=== PATIENT | male | born 1960 | race Caucasian/White ===

== ENCOUNTER 2018-04-20 15:16 | Inpatient (IN) | payer OTHER ==
[~2018-04-20] VITALS: Ht 210.8 cm; Wt 185.5 kg
[~2018-04-20 15:16] MED LIST: ALEVE220 MG PO; BAYER CHEWABLE81 MG PO; CLARITIN-D 12 H1 TA1 PO; FISH OIL 1,001000 M2 PO; IBUPROFEN 600600 M1 PO; LIPITOR40 MG PO
[2018-04-20] MEDS ORDERED: ALLER-TEC D 5-1 EACH PO (16:05)
[2018-04-20] MEDS ORDERED: GLUMETZA1000 PO (16:06)
[2018-04-20] MEDS ORDERED: AMARYL2 MG PO (16:07)
[2018-04-20] MEDS ORDERED: HYZAAR 100-12.1 EACH PO (16:08)
[2018-04-20] MEDS ORDERED: TYLENOL325 MG PO (16:11)
[2018-04-20 16:15] VITALS: BP 165/110
[2018-04-20 16:18] LABS: HEMATOCRIT 47.7 % (42.0-52.0); HEMOGLOBIN 16.5 gm/dL (14.0-18.0); MCH 28.3 pg (26.0-34.0); MCHC 34.5 g/dL (28.0-37.0); MCV 81.9 fL (80.0-100.0); RBC 5.83 mil/uL (4.50-6.00); RDW 14.1 % (10.5-14.5); WBC 7.8 thou/uL (4.0-11.0)
[2018-04-20 16:31] LABS: ANION GAP 10 mmol/L (7-16); BUN 18 mg/dL (7-18); CALCIUM 9.7 mg/dL (8.5-10.1); CHLORIDE 104 mmol/L (98-107); CO2 27 mmol/L (21-32); CREATININE 1.1 mg/dL (0.7-1.3); GLUCOSE 119 mg/dL (74-106); SODIUM 141 mmol/L (136-145)
[2018-04-20 16:39] LABS: ALBUMIN 3.8 g/dL (3.4-5.0); SGOT 70 U/L (15-37); SGPT 97 U/L (30-65); TOTAL BILIRUBIN 0.6 mg/dL (<0.1-1.0); TOTAL PROTEIN 7.5 g/dL (6.4-8.2); TROPONIN-I <0.06 ng/mL (<0.06)
[2018-04-20 17:54] VITALS: BP 192/126
[2018-04-20 18:58] VITALS: BP 157/97
--- NOTE | 2018-04-20 19:20 | NUR ---
Patient arrived as direct admit from Dr. Blanton office for new onset Afib RVR. Orders taken from Dr. Blanton for diet, additional labs, restart home meds, consult to cardiology. Admission history, education and assessment completed. Medications reviewed and restarted. Oriented to room and call light, fall precautions. Agreeable to call if assistance is needed. Up ad gaurav with steady gait. Cardiology rounded on patient; patient is in Afib, rates sustaining between 120s-150s. Blood pressure also elevated. To give onetime dose of Toprol 50 mg PO, 5 mg Cardizem IV bolus and begin Cardizem drip, titrate as needed. Rates are beginning to decrease, now 110s-120s. Spouse at bedside. Multiple family members visiting throughout evening. Bilateral SCDs in place. Too early to determine progression towards POC. Will continue to monitor.
[2018-04-20 20:00] VITALS: BP 157/97
[2018-04-20 23:55] VITALS: BP 121/82
[2018-04-21 01:00] VITALS: BP 121/82
[2018-04-21 03:05] LABS: GLYCOHEMOGLOBIN (HGB A1C) 6.9 % (4.8-5.6)
--- NOTE | 2018-04-21 03:16 | NUR ---
ASSUMED PT CARE AROUND 1900. A&OX4. DENIES ANY PAIN. VSS. BP STABLE. SON STAYED THE NIGHT AT BEDSIDE. PT WORE HOME CPAP DURING THE NIGHT. CARDIZEM GTT INFUSING, TITRATED FROM 5ML/HR DOWN TO 2.5 ML/HR DUE TO HR <100 WHILE PT WAS SLEEPING. NO MAJOR COMPLAINTS THIS SHIFT. PT DENIED ANY DIZZINESS. PROGRESSING TOWARD POC GOALS. WILL CONTINUE TO MONITOR FURTHER.
[2018-04-21 04:20] VITALS: BP 154/99
[2018-04-21 06:50] LABS: CHOLESTEROL 168 mg/dL (<200); HDL CHOLESTEROL 26 mg/dL (>40); LDL CHOLESTEROL 106 mg/dL (<100); TC:HDL 6.5 Ratio (Not establshd); TRIGLYCERIDE 180 mg/dL (<150); VLDL 36 mg/dL (<40)
[2018-04-21 08:04] VITALS: BP 153/99
--- NOTE | 2018-04-21 08:25 | H ---
[facility] [address] HISTORY AND PHYSICAL Name: ARGENIS HART Room #: 357-P ADM IN M.R.#: [id number] Admission: 04/20/18 ������������������ Attend Phys: Osorio Blanton MD Discharge: ������������������ Date of : 62 Report #: [id number] THIS REPORT FOR: //name// CC: Geovanny Blanton DATE OF SERVICE: 04/20/2018 CHIEF COMPLAINT: Syncope. HISTORY OF PRESENT ILLNESS: The patient is a 58-year-old gentleman who was admitted from the office today with a syncopal episode. He was in his usual state of health earlier the afternoon when he began to feel dizzy, lightheaded and had a syncopal episode at a local business [place]. He said the next thing he remembers is lying on the floor and customer standing around him to help him up. He did not have any preceding symptoms other than a short episode of lightheadedness and a weak feeling and then, he found himself on the floor. He denied any chest pain, palpitations or headache. In the office, an EKG was performed revealing atrial fibrillation with a rate of 115. He is admitted for cardiac evaluation. PAST MEDICAL HISTORY: Dyslipidemia, obstructive sleep apnea on CPAP, lumbar radiculopathy, diabetes type 2, hypertension, thoracic aortic aneurysm. PAST SURGICAL HISTORY: None. FAMILY HISTORY: Noncontributory. SOCIAL HISTORY: No chronic alcohol or tobacco use. He is and lives at home. ALLERGIES: PENICILLIN. MEDICATIONS: Aspirin 81 mg, fish oil, Tylenol, Luz Maria-D, Lipitor 40 mg, Hyzaar 100/12.5 mg, Amaryl 1 mg, metformin 1000 mg twice a day. REVIEW OF SYSTEMS: Denies headache, chest pain, abdominal pain, nausea, vomiting, diarrhea, constipation, dysuria. PHYSICAL EXAMINATION: VITAL SIGNS: Blood pressure 148/79, temperature 98, pulse 115, O2 sat 95% on room air. GENERAL: He is awake and alert. HEAD AND NECK: Unremarkable. LUNGS: Clear. HEART: Tachycardic, irregular rhythm. [facility] [address] [place] [address] HISTORY AND PHYSICAL Name: TANNERARGENIS Alicia Room #: 357-P [facility] IN .R.#: [id number] Admission: 04/20/18 ������������������ Attend Phys: Osorio Blanton MD Discharge: ������������������ Date of : 62 Report #: [id number] LUNGS: Clear. ABDOMEN: Obese, soft, normoactive bowel sounds. EXTREMITIES: No edema. NEUROLOGIC: Intact. ASSESSMENT: 1. New onset atrial fibrillation. 2. Hypertension. 3. Diabetes type 2. 4. Obstructive sleep apnea, on CPAP. 5. History of thoracic aneurysm. PLAN: He is admitted to telemetry for cardiac evaluation and we will have Dr. Sears see him in consultation. ��������������������������������������������� <ELECTRONICALLY SIGNED> ���������������������������������������� By: Osorio Blanton MD ��������������������������������������������� 04/21/18 0825 1451 1520 Osorio Blanton MD /janel
[2018-04-21] MEDS ORDERED: ELIQUIS5 MG PO (08:26)
[2018-04-21] MEDS ORDERED: CARDIZEM CD240 MG PO (08:27)
[2018-04-21 10:23] VITALS: BP 153/99
--- NOTE | 2018-04-21 13:28 | NUR ---
Assumed care of patient at 0700. BP elevated. Remains in AFib, rates 80s-low 100s. Otherwise, VSS. Denies pain. Denies dizziness. Displays steady gait. Is ready to discharge home. Discharge orders received. 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 Able to provide patient with samples for Eliquis and also provided with savings card to help with copay cost. Discharge prescriptions, follow up appointments and instructions reviewed with patient and spouse at bedside. Verbalize understanding. IV and telemetry discontinued. Belongings gathered. Patient transported to private vehicle to discharge home.
--- NOTE | 2018-04-22 19:27 | EKG ---
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: Lizzeth WELSH : 1960 Requested By: Maddie Delgado Order Number: [id number] MD: Fabricio Mcdonald Measurements Intervals [place] Rate: 112 P: [place]: QRS: -1 QRSD: 89 T: 33 QT: 332 QTc: 453 Interpretive Statements Atrial fibrillation Early transition Nonspecific ST-T wave changes No previous ECG available for comparison Electronically Signed On 04-22-2018 19:27:10 FINISHING FRAME RUNNER by Fabricio Mcdonald [email or web address] ��������������������������������������������� <ELECTRONICALLY SIGNED> ���������������������������������������� By: Fabricio Mcdonald MD ��������������������������������������������� 04/22/18 192 18 18 Fabricio Mcdonald MD /EPI
--- NOTE | 2018-04-22 19:36 | EKG ---
[address] [place] [address] ELECTROCARDIOGRAM REPORT Name: ARGENIS HART Room #: 357-P DIS IN M.R.#: [id number] ������������������ Admission: 04/20/18 ������������������ Attend Phys: Osorio Blanton MD Discharge: 04/21/18 ������������������ Date of : 62 Report #: [id number] ����������������������������������������������������������������� [id number] THIS REPORT FOR: //name// 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: [place] : 1960 Requested By: Danny Sears Order Number: [id number] MD: Fabricio Mcdonald Measurements Intervals [place] Rate: 83 P: [place]: QRS: 3 QRSD: 95 T: 32 QT: 391 QTc: 460 Interpretive Statements Atrial fibrillation Early transition Baseline wander Nonspecific ST-T wave changes No previous ECG available for comparison Electronically Signed On 04-22-2018 19:36:13 AIRPLANE PILOT CHIEF by Fabricio Mcdonald [email or web address] ��������������������������������������������� <ELECTRONICALLY SIGNED> ���������������������������������������� By: Fabricio Mcdonald MD ��������������������������������������������� 04/22/18 1936 4 4 Fabricio Mcdonald MD /CHARI
--- NOTE | 2018-04-25 12:37 | D ---
[facility] [place] [address] DISCHARGE SUMMARY Name: ARGENIS HART Room #: 357-P [facility] IN M.R.#: [id number] Admission: 04/20/18 ������������������ Attend Phys: Osorio Blanton MD Discharge: 04/21/18 ������������������ Date of : 62 Report #: [id number] THIS REPORT FOR: //name// CC: Geovanny Blanton DATE OF SERVICE: 04/21/2018 FINAL DIAGNOSES: 1. New onset atrial fibrillation with rapid ventricular response. 2. Obstructive sleep apnea. 3. Hypertension. 4. Diabetes type 2. HOSPITAL COURSE: The patient was admitted from the office with new onset atrial fibrillation. Dr. Sears saw him in consultation. Brief doses of IV Cardizem were used and then oral Cardizem. His rate was then controlled in the 80s. Anticoagulation was initiated. The plan will be outpatient cardiac event monitor with office followup. PHYSICAL EXAMINATION: GENERAL: On the day of discharge, he was resting comfortably in bed. VITAL SIGNS: Stable, heart rate was in the 80s, AFib. LUNGS: Clear. HEART: Irregular. ABDOMEN: Soft, normoactive bowel sounds, obese. EXTREMITIES: No edema. DISPOSITION: He is discharged to home with diet and activity as tolerated including diabetic diet. I have resumed all usual home medications plus Cardizem-CD 240 mg a day and Eliquis 5 mg twice a day. Follow up with Dr. Sears this coming week and Dr. Dill. ��������������������������������������������� <ELECTRONICALLY SIGNED> ���������������������������������������� By: Osorio Blanton MD ��������������������������������������������� 04/25/18 1237 0830 1110 Osorio Blanton MD /nt
== END 2018-04-21 13:29 | disposition home or self-care (01) | DRG 309 ==
LOC: 3W 15:16
PROVIDERS: Nurse Practitioner; ADMIT Internal Medicine Geriatric Medicine
DX: I48.0 Paroxysmal atrial fibrillation (principal); Z68.41 Body mass index [BMI] 40.0-44.9, adult; G47.33 Obstructive sleep apnea (adult) (pediatric); I10 Essential (primary) hypertension; E11.9 Type 2 diabetes mellitus without complications; E78.5 Hyperlipidemia, unspecified; I71.2 Thoracic aortic aneurysm, without rupture; I25.10 Atherosclerotic heart disease of native coronary artery without angina pectoris; E66.9 Obesity, unspecified; Z79.82 Long term (current) use of aspirin; Z79.84 Long term (current) use of oral hypoglycemic drugs; Z79.899 Other long term (current) drug therapy; Z88.0 Allergy status to penicillin
CPT/HCPCS: 10779

== ENCOUNTER 2018-05-28 16:59 | Inpatient (IN) | payer OTHER ==
[~2018-05-28] VITALS: Ht 210.8 cm; Wt 187.2 kg
[~2018-05-28 16:59] MED LIST changes: +ALLER-TEC D 5-1 EACH PO; +AMARYL2 MG PO; +CARDIZEM CD240 MG PO; +ELIQUIS5 MG PO; +GLUMETZA1000 PO; +HYZAAR 100-12.1 EACH PO; +TYLENOL325 MG PO
[2018-05-28 17:50] VITALS: BP 141/88
[2018-05-28 19:15] VITALS: BP 142/79
--- NOTE | 2018-05-28 19:53 | NUR ---
PT DIRECT ADMIT FROM DR. MORAN OFFICE. PT A&OX4, UP AD DORIAN. PT VITALS WITHIN NORMAL LIMITS AND PT WAS AFIB CONTROLLED RATE IN 80'S. CALLED CONTRACTOR BROOMCORN THRESHING AND ASKED IF OKAY TO GIVE METFORMIN TONIGHT. DR. PERRY WAS CONTRACTOR BROOMCORN THRESHING AND SAID TO GIVE METFORMIN PT WILL NOT HAVE HEART CATH TOMORROW. ALSO ORDERED ACHS AND INSULIN LDSS. ADMISSION COMPLETED.
[2018-05-28] MEDS ORDERED: DILTIAZEM 24HR360 M1 PO (19:56)
[2018-05-29 00:45] VITALS: BP 143/95
[2018-05-29 03:35] LABS: CALCIUM 8.7 mg/dL (8.5-10.1); CREATININE 0.9 mg/dL (0.7-1.3); POTASSIUM 3.7 mmol/L (3.5-5.1)
[2018-05-29 03:38] LABS: INR 1.1; PROTIME 11.6 Seconds (9.3-11.4)
--- NOTE | 2018-05-29 03:39 | NUR ---
RECEIVED PT'S CARE AROUND 192; PT. ON BED; NO C/O; NO C/O DIZZINESS; DURING ASSESSMENT NO C/O CP OR DIZZINESS; AOX4; ABLE TO AMBULATE FROM BED TO RESTHROOM; EDUCATED ABOUT FALL PREVENTION ST. UNDERSTANDING; RELATIVES AT BED SIDE; PER DR. PERRY ORDER METFORMIN GIVEN; ABLE TO REST THROUGH THE NIGHT; HEART RHYTHM A-FIB; ASSESSMENT CHARGED; FOLLOWING POC; WILL PASS ON REPORT.
[2018-05-29 04:00] LABS: HEMATOCRIT 42.4 % (42.0-52.0); HEMOGLOBIN 14.6 gm/dL (14.0-18.0); MCH 28.5 pg (26.0-34.0); MCHC 34.5 g/dL (28.0-37.0); MCV 82.5 fL (80.0-100.0); RBC 5.14 mil/uL (4.50-6.00); WBC 6.7 thou/uL (4.0-11.0)
[2018-05-29 04:19] VITALS: BP 135/96
[2018-05-29 07:28] VITALS: BP 159/100
[2018-05-29 11:27] VITALS: BP 155/111
[2018-05-29 15:17] VITALS: BP 138/94
--- NOTE | 2018-05-29 15:27 | NUR ---
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 PCP Dr Alfonso Dill. His diagnosed with lymphoma and undergoing treatment at this time. She just began tx. Patient has 7 children, 2 living at home. is independent with adls and able to be at home she may not visit due to cancer diagnosis. Anticipate dc home no needs, casemgt following.
--- NOTE | 2018-05-29 16:58 | EKG ---
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: : 1960 Requested By: Abdulkadir Ramirez Order Number: [id number] MD: Danny Sears Measurements Intervals [place] Rate: 95 P: [place]: QRS: 8 QRSD: 105 T: 17 QT: 368 QTc: 463 Interpretive Statements Atrial fibrillation Ventricular premature complex Abnormal R-wave progression, early transition Compared to ECG 04/21/2018 08:05:39 Ventricular premature complex(es) now present Electronically Signed On 05-29-2018 16:58:05 CDT by Danny Sears [email or web address] ��������������������������������������������� <ELECTRONICALLY SIGNED> ���������������������������������������� By: Danny Sears MD, [facility] ��������������������������������������������� 05/29/18 1658 0736 0736 Danny Sears MD, [facility] /EPI
--- NOTE | 2018-05-29 18:19 | NUR ---
ASSESSMENT DOCUMENT. PT ALERT AND ORIENTED. DENIED HAVING PAIN OR DISCOMFORT. NO CARDIAC OR RESPIRATORY DISTRESS NOTED. NPO AFTER MIDNIGHT. NO CONCERNS AT THIS TIME. WILL CONTINUE TO MONITOR.
[2018-05-29 19:22] VITALS: BP 140/84
[2018-05-30] VITALS (13 sets, daily range): BP systolic 95–151; BP diastolic 59–101
--- NOTE | 2018-05-30 03:48 | NUR ---
ASSUMED PT CARE AT 1900. VSS. PT A&0X4. AFIB ON THE MONITOR, CONTROLLED. PT IS MEANT TO HAVE A HEART CATH PROCEDURE DONE THIS AM, NO ORDERS YET. PT RESTED ALL NIGHT, ASSESSMENTS ARE CHARTED, NO COMPLAINTS OF PAIN NAUSEA OR ANY DISTRESS. PT IS STABLE. WILL CONTINUE TO MONITOR PER POC
--- NOTE | 2018-05-30 08:23 | EKG ---
[address] [address] ELECTROCARDIOGRAM REPORT Name: ARGENIS HART Room #: 210-P ADM IN M.R.#: [id number] ������������������ Admission: 05/28/18 ������������������ Attend Phys: Abdulkadir Ramirez MD Discharge: ������������������ Date of : 62 Report #: [id number] ����������������������������������������������������������������� [id number] THIS REPORT FOR: //name// [facility] Test Date: 2018-05-30 Test Time: 07:05:08 Pat Name: ARGENIS HART Department: Room: 210 P Gender: M Sales Review Clerk: PATRICA : 1960 Requested By: Abdulkadir Ramirez Order Number: [id number] MD: Abdulkadir Ramirez Measurements Intervals [place] Rate: 79 P: [place]: QRS: -1 QRSD: 107 T: 36 QT: 396 QTc: 455 Interpretive Statements Atrial fibrillation Abnormal R-wave progression, early transition Minimal ST elevation, inferior leads Compared to ECG 05/29/2018 07:36:08 ST (T wave) deviation now present Ventricular premature complex(es) no longer present Electronically Signed On 05-30-2018 8:23:13 CDT by Abdulkadir Ramirez [email or web address] ��������������������������������������������� <ELECTRONICALLY SIGNED> ���������������������������������������� By: Abdulkadir Ramirez MD ��������������������������������������������� 05/30/18822 4 4 Abdulkadir Ramirez MD /EPI
--- NOTE | 2018-05-30 18:30 | NUR ---
ASSESSMENT DOCUMENTED. VSS. PT ALERT AND ORIENTED. DENIED HAVING PAIN OR DISCOMFORT. HAD CARDIAC CATH THIS AM. RIGHT GROIN INCISION C/D/I. NO HEMATOMA NOTED. SCHEDULED FOR ICD IN THE MID MORNING. NO CARDIAC OR RESPIRATORY DISTRESS NOTED. WILL CONTINUE TO MONITOR.
[2018-05-31] VITALS (11 sets, daily range): BP systolic 107–157; BP diastolic 74–95
--- NOTE | 2018-05-31 04:28 | NUR ---
ASSUMED PT CARE AT 1900. VSS. PT A&0X4. ASSESSMENTS AND MEDS GIVEN ARE CHARTED. PT TOOK A HIBECLENS SHOWER LAST NIGHT AND WILL TAKE ANOTHER AROUND 8AM THIS MORNING. HEART MONITOR ELECTRODES WERE TRANSFERED TO HIS BACK SINCE LAST NIGHT. CONSENT SIGNED. HAS BEEN NPO SINCE MIDNIGHT IN PREP FOR ICD PLACEMENT TODAY. PT RESTED WELL ALL NIGHT, NO COMPLAINTS OF PAIN OR DISTRESS. WILL CONTINUE TO MONITOR PER POC.
[2018-05-31 04:31] LABS: CALCIUM 8.7 mg/dL (8.5-10.1); POTASSIUM 3.8 mmol/L (3.5-5.1)
[2018-05-31 05:16] LABS: ABSOLUTE NEUTROPHILS 5.3 thou/uL (1.4-8.2); BASOPHILS 0.6 % (0.0-2.0); EOSINOPHILS 3.1 % (0.0-3.0); HEMATOCRIT 43.7 % (42.0-52.0); HEMOGLOBIN 15.1 gm/dL (14.0-18.0); MCH 28.2 pg (26.0-34.0); MCHC 34.6 g/dL (28.0-37.0); MCV 81.6 fL (80.0-100.0); MONOCYTES 7.1 % (1.0-8.0); PLATELET COUNT 257 thou/uL (150-400); POLYS 66.2 % (36.0-66.0); RBC 5.35 mil/uL (4.50-6.00)
--- NOTE | 2018-05-31 09:30 | EKG ---
[address] [address] ELECTROCARDIOGRAM REPORT Name: ARGENIS HART Room #: 210-P ADM IN M.R.#: [id number] ������������������ Admission: 05/28/18 ������������������ Attend Phys: Abdulkadir Ramirez MD Discharge: ������������������ Date of : 62 Report #: [id number] ����������������������������������������������������������������� [id number] THIS REPORT FOR: //name// [facility] Test Date: 2018-05-31 Test Time: 07:04:56 Pat Name: ARGENIS HART Department: Room: 210 P Gender: M Benefits Coordinator: PATRICA : 1960 Requested By: Abdulkadir Ramirez Order Number: [id number] MD: Danny Sears Measurements Intervals [place] Rate: 78 P: [place]: QRS: -6 QRSD: 110 T: 40 QT: 406 QTc: 463 Interpretive Statements Atrial fibrillation Abnormal R-wave progression, early transition Compared to ECG 05/30/2018 07:05:08 No significant change was found Electronically Signed On 05-31-2018 9:30:43 CDT by Danny Sears [email or web address] ��������������������������������������������� <ELECTRONICALLY SIGNED> ���������������������������������������� By: Danny Sears MD, [facility] ��������������������������������������������� 05/31/18 0930 0704 Danny Sears MD, [facility] /EPI
--- NOTE | 2018-05-31 10:21 | 2DMMODE ---
[facility] [place] [place] [address] 2 D/M-MODE ECHOCARDIOGRAM Name: TANNERARGENIS Alicia Room #: 210-P ADM IN M.R.#: [id number] ������������� Admission: 05/28/18 ������������� Attend Phys: Abdulkadir Ramirez Discharge: ��� ������������� ��� Date of : 62 Date of Service: 05/31/18 1021 �� Report #: [id number] �������� ��������������������������������������������[id number] THIS REPORT FOR: //name// APPROVED REPORT Study performed: 05/31/2018 09:21:50 EXAM: Limited 2D, Doppler, and color-flow Echocardiogram Patient Location: Echo lab Room #: 210 Status: routine BSA: 3.21 HR: 103 bpm BP: 132/80 mmHg Rhythm: Atrial Fibrillation Other Information Study Quality: Fair Technically limited study due to body habitus. Indications Ventricular tachycardia. Hx: Afib, CAD, DM, HLP. Echo Enhancing Agent Indication: Endocardial border delineation Agent(s) / Amount(s) Used: Optison 5 cc 2D Dimensions IVSd: 13.64 (7-11mm) LVDd: 52.18 mm PWd: 12.90 (7-11mm) Ascending Ao: 43.90 (22-36mm) LVDs: 39.03 (25-40mm) Aortic Root: 44.83 mm Volumes Left Atrial Volume (Systole) Single Plane 4CH: 54.28 mL Single Plane 2CH: 61.79 mL LA ESV Index: 20.00 mL/m2 Aortic Valve AoV Peak Matias.: 1.11 m/s AO Peak Gr.: 5.00 mmHg Left Ventricle The left ventricle is normal size. Mild concentric left ventricular [facility] [address] [place] [address] 2 D/M-MODE ECHOCARDIOGRAM Name: ARGENIS HART Room #: 210-P ADM IN .R.#: [id number] ������������� Admission: 05/28/18 ������������� Attend Phys: Abdulkadir Ramirez Discharge: ��� ������������� ��� Date of : 62 Date of Service: 05/31/18 1021 �� Report #: [id number] �������� ��������������������������������������������[id number] hypertrophy. Left ventricular systolic function is normal. LVEF is 50-55%. This study is not technically sufficient to allow evaluation of the LV diastolic function due to atrial fibrillation. Atria The left atrium size is normal. The right atrium size is normal. Aortic Valve Aortic valve is mildly calcified. Mild aortic regurgitation. There is no aortic valvular stenosis. Mitral Valve The mitral valve is normal in structure. Mild mitral regurgitation. Tricuspid Valve The tricuspid valve is normal in structure. There is no tricuspid valve regurgitation noted. Great Vessels Aortic root is dilated at 4.5cm. Ascending aorta is dilated (4.4cm). IVC is not well visualized. Pericardium There is no pericardial effusion. <Conclusion> Limited and abbreviated study Left ventricular systolic function is normal. LVEF is 50-55%. Aortic valve is mildly calcified. Mild aortic regurgitation, no stenosis. The mitral valve is normal in structure. Mild mitral regurgitation. Ascending aorta is dilated (4.4cm). There is no pericardial effusion. ��������������������������������������������� <ELECTRONICALLY SIGNED> ���������������������������������������� By: Danny Sears MD, [facility] ��������������������������������������������� 05/31/18 1021 1021 1021 Danny Sears MD, FACC /INF
--- NOTE | 2018-05-31 14:22 | NUR ---
Nutrition: pt admitted with afib, Vtach and seen due to BMI 42. No weight hx. Cardiac cath done yesterday negative. Pt having ICD placement today and not in room. NPO. Prior heart healthy diet. Will follow for adequate intake/education needs when pt available.
--- NOTE | 2018-05-31 17:46 | NUR ---
ASSESSMENT CHARTED. PT ALERT AND ORIENTED. HAD ICD PLACEMENT THIS AM. RIGHT CHEST INCISION. C/D/I WITH DERMABOND. NO HEMATOMA NOTED. CMS INTACT ON LEFT ARM. HAS IMMOBILIZER ON THE LEFT HAND. DENIED HAVING PAIN OR DISCOMFORT. WILL CONTINUE TO MONITOR.
[2018-06-01 04:00] VITALS: BP 119/81
[2018-06-01 08:05] VITALS: BP 108/54
[2018-06-01] MEDS ORDERED: METOPROLOL SUCC50 MG PO (08:07)
[2018-06-01] MEDS ORDERED: SOTALOL 120 MG120 MG PO (08:07)
[2018-06-01 09:47] VITALS: BP 108/54
--- NOTE | 2018-06-01 10:05 | CATHLAB ---
[place] [address] [facility] [place] [address] INVASIVE PROCEDURE REPORT Name: ARGENIS HART Room #: 210-P [facility] IN [facility]#: [id number] ������������� Admission: 05/28/18 ������������� Attend Phys: Abdulkadir Ramirez Discharge: ��� ������������� ��� Date of : 62 Date of Service: 06/01/18 1005 �� Report #: [id number] �������� ��������������������������������������������[id number] THIS REPORT FOR: //name// APPROVED REPORT Study performed: 05/30/2018 07:38:15 Patient Details Patient Status: In-Patient Room #: Indication Arrhythmia Procedure Narrative The patient was brought urgently to the Cardiac Catheterization Laboratory and was prepped and draped in a sterile manner. The Right Groin^ was infiltrated with 1% Lidocaine subcutaneous anesthesia. A PINNACLE 6FR Sheath #[id number] sheath was inserted into the RFA^. Coronary angiography was performed using coronary diagnostic catheters. The left coronary system was accessed and visualized with a JL5 catheter. The left ventricle was accessed and visualized with a PIGTAIL catheter. Left ventricular/Aortic Valve gradient assessed . Left ventriculogram was performed in LINDER projection. Closure device was deployed with a Fr MYNXGRIP 6/7F #[id number]. The patient tolerated the procedure well and there were no complications associated with the procedure. There was no hematoma. Intraoperative Conscious Sedation Sedation start time: 0740 Case end Time: 0850 Fentanyl 100 mcg Versed 2 mg Fluoro Time: 25.10 minutes Dose: DAP 87201.00 cGycm2 Contrast Type and Amount: Omnipaque 380 ml Coronary Angiography The patient's coronary anatomy is left dominant. Diagnostic Cath Left Main Large, normal left main LAD The LAD was a large vessel that extended to the inferoapex. The LAD was angiographically normal. Diagonal 1 Large first diagonal/ramus branch with mild ostial and proximal plaquing [facility] [address] [employer] [address] INVASIVE PROCEDURE REPORT Name: ARGENIS HART Room #: 210-P [facility] IN M.R.#: [id number] ������������� Admission: 05/28/18 ������������� Attend Phys: Abdulkadir Ramirez Discharge: ��� ������������� ��� Date of : 62 Date of Service: 06/01/18 1005 �� Report #: [id number] �������� ��������������������������������������������[id number] Diagonal 2 Small second diagonal branch, angiographically normal Circumflex Circumflex was large and dominant. Mild proximal plaquing. OM1 Mid vessel arising bifurcating first marginal branch, angiographically normal L PDA Distal circumflex gave rise to the posterior descending, angiographically normal Right Coronary See below Left Ventriculography The left ventricle is normal in size with normal contractility. The left ventricular ejection fraction is estimated to be 60-65%. Left ventricular wall motion abnormalities are not present. There is no mitral insufficiency. The left diagnostic catheter was barely long enough to reach to LM ostium. Multiple catheters were used to try to engage the right coronary including JR 4,5, and 6, AR mod, AR2, and no torque right. On each occasion the catheters were not long enough, hubbed at the groin; the right coronary artery probably had an anomolous or anterior origin. Supravalvular aortography demonstrated no dissection. Mild dilatation of the ascending aorta. Probable small, nondominant right coronary. Conclusion Technically difficult study 1. Normal global and regional left ventricular systolic function. 2. Normal left main 3. Mild, scattered nonocclusive plaquing in the LAD and circumflex 4. The right coronary was probably nondominant and had an anomalous or anterior origin. Unable to selectively engage the right coronary in part due to catheter sizes that were too short for his 6 foot 11 inch frame ��������������������������������������������� <ELECTRONICALLY SIGNED> ���������������������������������������� By: Danny Sears MD, [facility] ��������������������������������������������� 06/01/18 1005 1005 1005 Danny Sears MD, FACC /INF
[2018-06-01 11:50] VITALS: BP 103/46
--- NOTE | 2018-06-01 13:06 | NUR ---
ASSESSMENT DOCUMENTED. PT ALERT AND ORIENTED. DENIED HAVING PAIN OR DISCOMFORT. LEFT CHST ICD INSCISION C/D/I. NO HEMATOMA NOTED. DISCHARGE INSTRUCTIONS GIVEN TO PT. PT VERBERLIZE UNDERSTANDING. PT LEFT THE FACILITY ACCOMPANIED BY THE SON.
--- NOTE | 2018-06-02 18:31 | EKG ---
[address] [address] ELECTROCARDIOGRAM REPORT Name: ARGENIS HART Room #: 210-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1960 Requested By: Abdulkadir Ramirez Order Number: [id number] MD: Fabricio Mcdonald Measurements Intervals [place] Rate: 88 P: [place]: QRS: 4 QRSD: 101 T: 43 QT: 387 QTc: 469 Interpretive Statements Atrial fibrillation early transition Nonspecific ST-T wave changes Compared to ECG 05/31/2018 07:04:56 No significant changes Electronically Signed On 06-02-2018 18:31:32 CDT by Fabricio Mcdonald [email or web address] ��������������������������������������������� <ELECTRONICALLY SIGNED> ���������������������������������������� By: Fabricio Mcdonald MD ��������������������������������������������� 06/02/18 1831 0633 0633 Fabricio Mcdonald MD /EPI
== END 2018-06-01 13:05 | disposition home or self-care (01) | DRG 287 ==
LOC: 2N 16:59 → ENTRNSPT 06-01 12:15 → EDTRNSPTSTS 06-01 12:29 → 2N 06-01 13:05
PROVIDERS: ADMIT Internal Medicine Cardiovascular Disease
PROC: B2151ZZ Fluoroscopy of Left Heart using Low Osmolar Contrast (ICD-10-PCS; principal; 2018-05-30)
PROC: B2111ZZ Fluoroscopy of Multiple Coronary Arteries using Low Osmolar Contrast (ICD-10-PCS; principal; 2018-05-30)
PROC: 4A023N7 Measurement of Cardiac Sampling and Pressure, Left Heart, Percutaneous Approach (ICD-10-PCS; principal; 2018-05-30)
DX: I47.2 Ventricular tachycardia (principal); I25.10 Atherosclerotic heart disease of native coronary artery without angina pectoris; I48.1 Persistent atrial fibrillation; Z79.899 Other long term (current) drug therapy; Z88.0 Allergy status to penicillin

== ENCOUNTER 2018-06-09 15:43 | Emergency (ER) | payer OTHER ==
[~2018-06-09] VITALS: Ht 210.8 cm; Wt 181.4 kg
[~2018-06-09 15:43] MED LIST changes: +DILTIAZEM 24HR360 M1 PO; +METOPROLOL SUCC50 MG PO; +SOTALOL 120 MG120 MG PO
[2018-06-09 16:07] LABS: HEMATOCRIT 43.8 % (42.0-52.0); HEMOGLOBIN 15.1 gm/dL (14.0-18.0); MCH 27.9 pg (26.0-34.0); MCHC 34.5 g/dL (28.0-37.0); MCV 80.9 fL (80.0-100.0); RBC 5.42 mil/uL (4.50-6.00); RDW 13.3 % (10.5-14.5); WBC 6.8 thou/uL (4.0-11.0)
[2018-06-09 16:15] LABS: CALCIUM 9.4 mg/dL (8.5-10.1); POTASSIUM 4.1 mmol/L (3.5-5.1)
[2018-06-09 16:37] VITALS: BP 124/68
--- NOTE | 2018-06-10 10:34 | EKG ---
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[place] : 1960 Requested By: Yaya Perez Order Number: [id number] MD: Yunior Jaramillo Measurements Intervals [place] Rate: 73 P: [place]: QRS: -10 QRSD: 116 T: 35 QT: 406 QTc: 448 Interpretive Statements Atrial fibrillation Nonspecific intraventricular conduction delay Low voltage, precordial leads Compared to ECG 06/01/2018 06:33:26 Intraventricular conduction delay now present No change Electronically Signed On 06-10-2018 10:34:08 CDT by Yunior Jaramillo [email or web address] ��������������������������������������������� <ELECTRONICALLY SIGNED> ���������������������������������������� By: Yunior Jaramillo MD ��������������������������������������������� 06/10/18 1034 1545 1545 MD EZEQUIEL Rooney
== END 2018-06-09 16:41 | disposition home or self-care (01) ==
LOC: ER 15:43
PROVIDERS: Emergency Medicine
DX: L76.22 Postprocedural hemorrhage of skin and subcutaneous tissue following other procedure (principal); E78.00 Pure hypercholesterolemia, unspecified; I10 Essential (primary) hypertension; E11.9 Type 2 diabetes mellitus without complications; G47.33 Obstructive sleep apnea (adult) (pediatric); I48.91 Unspecified atrial fibrillation; Z95.0 Presence of cardiac pacemaker; Z88.0 Allergy status to penicillin; Y83.8 Other surgical procedures as the cause of abnormal reaction of the patient, or of later complication, without mention of misadventure at the time of the procedure

== ENCOUNTER → 2018-07-26 | Outpatient (CLI) | payer OTHER ==
[2018-07-26 08:05] LABS: APTT 25.6 Seconds (24.5-32.8); INR 1.1; PROTIME 10.9 Seconds (9.3-11.4)
--- NOTE | 2018-07-26 10:24 | NUR ---
O950 2 CC REMOVED FROM RADIAL BAND 1005 2 MORE CC'S REMOVED FORM RADIAL BAND 1025 2 CC'S REMOVED FROM RADIAL BAND
--- NOTE | 2018-07-27 15:43 | CATHLAB ---
[facility] [address] [place] [address] INVASIVE PROCEDURE REPORT Name: ARGENIS HART Room #: REG CL [facility]#: [id number] ������������� Admission: 07/26/18 ������������� Attend Phys: Danny Sears, Discharge: ��� ������������� ��� Date of : 62 Date of Service: 07/26/18 0836 �� Report #: [id number] �������� ��������������������������������������������[id number] THIS REPORT FOR: //name// CC: Alfonso Sears DATE OF SERVICE: 07/26/2018 INDICATION: Atrial fibrillation. PROCEDURE: The potential benefits and risks of the procedure were discussed at length with the patient who understood. Full written and informed consent was obtained. The patient was sedated by the anesthesiologist with propofol and ketamine. 200 biphasic synchronous joules were applied to the chest. This failed to convert atrial fibrillation to sinus rhythm and was followed by a second 200 synchronous joule attempt. After the second shock, sinus rhythm was instituted. He remained in hemodynamically, electrically and neurologically stable condition following the procedure. SUMMARY: Successful cardioversion of atrial fibrillation to sinus rhythm following two 200-joule biphasic synchronous joule shocks. ��������������������������������������������� <ELECTRONICALLY SIGNED> ���������������������������������������� By: Danny Sears MD, [facility] ��������������������������������������������� 07/27/18 1543 0836 2317 Danny Sears MD, FACC /nt
== END | disposition home or self-care (01) ==
LOC: CATH 07:02
PROVIDERS: Internal Medicine
DX: I48.91 Unspecified atrial fibrillation (principal); Z88.0 Allergy status to penicillin; Z79.01 Long term (current) use of anticoagulants; Z79.82 Long term (current) use of aspirin; Z79.899 Other long term (current) drug therapy
CPT/HCPCS: 62110; 62900

== ENCOUNTER → 2018-09-11 | Outpatient (CLI) | payer OTHER ==
[~2018-09-11] VITALS: Ht 210.8 cm; Wt 181.4 kg
[2018-09-11 07:39] LABS: HEMOGLOBIN 15.4 gm/dL (14.0-18.0); MCH 27.9 pg (26.0-34.0); MCHC 34.3 g/dL (28.0-37.0); MCV 81.5 fL (80.0-100.0); RBC 5.52 mil/uL (4.50-6.00); RDW 13.4 % (10.5-14.5); WBC 5.8 thou/uL (4.0-11.0)
[2018-09-11 07:42] VITALS: BP 121/62
[2018-09-11 07:53] LABS: APTT 28.2 Seconds (24.5-32.8); INR 1.1; PROTIME 11.3 Seconds (9.3-11.4)
[2018-09-11 07:59] LABS: ALBUMIN 3.8 g/dL (3.4-5.0); TOTAL BILIRUBIN 0.6 mg/dL (<0.1-1.0); TOTAL PROTEIN 7.4 g/dL (6.4-8.2)
== END | disposition home or self-care (01) ==
LOC: CATH 07:07
PROVIDERS: Internal Medicine Cardiovascular Disease
DX: I48.91 Unspecified atrial fibrillation (principal); I10 Essential (primary) hypertension; I25.10 Atherosclerotic heart disease of native coronary artery without angina pectoris; E78.5 Hyperlipidemia, unspecified; E11.9 Type 2 diabetes mellitus without complications; G47.33 Obstructive sleep apnea (adult) (pediatric); E78.00 Pure hypercholesterolemia, unspecified; Z98.890 Other specified postprocedural states; Z79.899 Other long term (current) drug therapy; Z88.0 Allergy status to penicillin; Z79.01 Long term (current) use of anticoagulants; Z79.82 Long term (current) use of aspirin
CPT/HCPCS: 62110; 62900

== ENCOUNTER → 2020-09-11 | Outpatient (CLI) | payer BC, OTHER | LOC: SJCVCIMAG 08:14 | PROVIDERS: ATTEND Internal Medicine | DX: I08.0 Rheumatic disorders of both mitral and aortic valves (principal); I11.9 Hypertensive heart disease without heart failure; I77.819 Aortic ectasia, unspecified site; I48.0 Paroxysmal atrial fibrillation; E11.9 Type 2 diabetes mellitus without complications; Z79.899 Other long term (current) drug therapy ==